=== PATIENT | female | born 1990 | race Caucasian/White ===

== ENCOUNTER 2017-08-19 12:08 | Emergency (ER) | payer BC ==
[2017-08-19 12:59] LABS: #Basophils 0.1 thou/uL (0.0-0.2); #Eosinphils 0.2 thou/uL (0.0-0.7); #Lymphocytes 2.2 thou/uL (1.20-3.40); #Monocytes 0.6 thou/uL (0.11-0.59); %Basophils 0.8 % (0.0-1.0); %Eosinophils 1.2 % (0.0-10.0); %Lymphocytes 16.9 % (21.0-51.0); %Monocytes 4.3 % (0.0-10.0); %Neutrophils 76.8 % (42.0-75.0); Hemoglobin 13.8 g/dL (12.0-16.0); Mean Corpuscular HGB CONC 34.3 g/dL (32.0-36.0); Mean Corpuscular Hemoglobin 30.9 pg (27.0-31.0); Mean Platelet Volume 7.3 fL (7.4-10.4); Platelet Count 270 thou/uL (130-400); Red Blood Cell (RBC) Count 4.48 mill/uL (4.20-5.40)
[2017-08-19 13:15] LABS: CKMB 0.9 ng/mL (0-6.6); Troponin I Less than 0.010 ng/mL (< 0.028)
[2017-08-19] MEDS ORDERED: Acetaminophen 500 MG TAB ONE (13:34)
--- NOTE | 2017-09-17 17:21 | EKG ---
Test Reason : Blood Pressure : / mmHG Vent. Rate : 106 BPM Atrial Rate : 106 BPM P-R Int : 148 ms QRS Dur : 072 ms QT Int : 330 ms P-R-T Axes : 033 -11 031 degrees QTc Int : 438 ms Sinus tachycardia Left axis deviation Otherwise normal ECG Reconfirmed by ABISAI LONGO, REI ([id number]), school photograph editor JOSE ALBERTO MCKEON ([id number]) on 09/17/2017 5:20:59 PM Referred By: Confirmed By:REI BARONE MD
== END 2017-08-19 13:39 | disposition home or self-care (01) ==
LOC: SCSER 12:08
DX: R00.2 Palpitations (principal); I10 Essential (primary) hypertension
CPT/HCPCS: 36415; 82553; 84443; 84484; 85025; 93005

== ENCOUNTER 2022-02-24 13:52 | Inpatient (IN) | payer OTHER, BC ==
[~2022-02-24 13:52] MED LIST: ISOVUE-370 76%-LOCM 1 ML ONE
[2022-02-24] MEDS ORDERED: Rocuronium Bromide 10 MG/ML (10ML VIAL) ONE (14:15)
[2022-02-24] MEDS ORDERED: EPINEPHrine 1 MG/10 ML Abboject SYRINGE ONE (14:15)
[2022-02-24] MEDS ORDERED: Calcium Chloride 1 GM/10 ML Abboject SYRINGE ONE (14:15)
[2022-02-24] MEDS ORDERED: Ketamine 50 MG/ML (10ML VIAL) ONE (14:28)
[2022-02-24 14:35] LABS: BHCG - Serum Negative (NEGATIVE); Pregs Control Background? CLEAR/WHITE (CLR/WHITE); Pregs Control Bar Appear? YES (CONTROL BAR)
[2022-02-24 14:36] LABS: INR-International Normal Ratio 1.1; Prothrombin Time 14.4 sec (12.0-14.7)
[2022-02-24 14:37] LABS: PTT 34.6 sec (22.9-36.1)
[2022-02-24] MEDS ORDERED: Midazolam HCl 2 mg/2 ml Vial ONE (14:38)
[2022-02-24 14:39] LABS: ALT (SGPT) 1601 U/L (8-55); AST (SGOT) 2252 U/L (5-34); Albumin 3.7 g/dL (3.5-5.0); Alkaline Phosphatase 153 U/L (40-110); Anion Gap 19 mmol/L (10-20); BUN (Urea Nitrogen) 12 mg/dL (7.0-18.7); Bilirubin, Total 0.7 mg/dL (0.2-1.2); Calc. Creatinine Clearance 0 mL/min (70-130); Calcium 9.1 mg/dL (7.8-10.44); Carbon Dioxide 18 mmol/L (22-29); Chloride 103 mmol/L (98-107); Estimated GFR 47; Glucose 267 mg/dL (70-105); Potassium 5.4 mmol/L (3.5-5.1); Protein, Total 7.7 g/dL (6.0-8.3); Sodium 135 mmol/L (136-145)
[2022-02-24 14:41] LABS: Hemoglobin 13.5 g/dL (12.0-16.0); Mean Corpuscular HGB CONC 33.9 g/dL (32.0-36.0); Mean Corpuscular Hemoglobin 32.2 pg (27.0-31.0); Mean Corpuscular Volume 94.9 fL (78.0-98.0); Mean Platelet Volume 7.5 fL (7.4-10.4); Platelet Count 421 thou/uL (130-400); Red Blood Cell (RBC) Count 4.19 mill/uL (4.20-5.40); White Blood Cell (WBC) Count 40.7 thou/uL (4.8-10.8)
[2022-02-24] MEDS ORDERED: Tranexamic Acid 1,000 MG/10 ML VIAL ONE ×2 (14:41→14:45)
[2022-02-24 14:43] LABS: Band 24 % (5-11); Eosinophils 1 % (0-10); Lymphocytes 13 % (21-51); MDiff Complete? YES; Monocytes 2 % (0-10); Myelocyte 1 % (0-0); Neutrophil 55 % (42-75); Platelet Morphology Comment Appears Increased; Polychromasia SLIGHT = 2-3 cells (100X) (0-2/hpf); Reactive Lymphocytes 4 % (0-10); Reflex for Review?? YES; Stomatocytes SLIGHT = 2-5 cells (100X) (0-1/hpf)
[2022-02-24] MEDS ORDERED: Fentanyl 100 MCG/2 ML VIAL ONE (14:44)
[2022-02-24] MEDS ORDERED: fentaNYL Citrate/PF 2,000 MCG in Sodium Chloride 0.9% 60 ML IV SCH (14:45)
[2022-02-24] MEDS ORDERED: Boostrix 0.5 ML (Tdap) VIAL ONE (14:52)
[2022-02-24 15:05] LABS: Bacteria/HPF 4+ HPF (None Seen); Bilirubin Negative (Negative); Blood, Urine 3+ (Negative); Clarity Turbid (Clear); Glucose, Urine (Dipstick) Normal (Negative); Ketone, Urine Negative (Negative); Leukocyte 25 Leu/uL (Negative); Nitrite Negative (Negative); Protein, Urine (Dipstick) 30 mg/dL (Neg-Trace); RBC/HPF Greater than 50 HPF (0-3); Specific Gravity, Urine 1.014 (1.002-1.036); Urobilinogen Normal mg/dL (Less than 2); pH, Urine 6.5 (5.0-9.0)
[2022-02-24] MEDS ORDERED: Fentanyl CADD 100 ML ONE (15:21)
[2022-02-24] MEDS ORDERED: Insulin Regular 300 UNITS/3 ML VIAL SC PRN (15:34)
[2022-02-24] MEDS ORDERED: Ondansetron PF 4 MG/2 ML Vial IVP PRN (15:34)
[2022-02-24] MEDS ORDERED: Dextrose 5% in Water 1,000 ML IV PRN (15:34)
[2022-02-24] MEDS ORDERED: Promethazine HCl 25 MG/ML VIAL IM PRN (15:34)
[2022-02-24] MEDS ORDERED: Dextrose 50% Abboject 50 ML SYRINGE SLOW IVP PRN (15:34)
[2022-02-24] MEDS ORDERED: hydrALAZINE 20 MG/ML VIAL SLOW IVP PRN (15:34)
[2022-02-24 15:39] LABS: Acetaminophen Less than 10.0 mcg/mL (10.0-30.0); Alcohol Less than 10 mg/dL (Less than 10); Salicylate Less than 8.0 mg/dL (15.0-30.0)
[2022-02-24] MEDS ORDERED: Sodium Chloride 0.9% 1,000 ML IV SCH (15:45)
[2022-02-24 15:48] LABS: Actual Bicarbonate (HCO3a) 16.8 mEq/L (22-28); Base Excess (BEa) -10.5 mEq/L (-2.0 to +3.0); CO2 Tension 42.1 mmHg (35.0-45.0); Hemoglobin (Hb) 13.9 g/dL (12.0-16.0); O2 Tension (PaO2), arterial 99.1 mmHg (80.0-100.0)
[2022-02-24 15:49] LABS: ALV-art Gradient 561.275 mmHg (0-20); Analyzer IN Cardio ER; Calcium, Ionized (arterial) 1.21 mmol/L (1.12-1.30); Carboxyhemoglobin (COHb) 0.3 gm% (0.0-3.0); Potassium - ABG Lab 3.99 mmol/L (3.70-5.30); Puncture Site RRA; pH, Arterial 7.22 (7.35-7.45)
[2022-02-24 16:06] LABS: CKMB 14.5 ng/mL (0-6.6)
[2022-02-24] MEDS: Fentanyl CADD 100 ML IV PRN (16:12)
[2022-02-24 17:18] LABS: Lactic Acid 4.9 mmol/L (0.5-2.2)
[2022-02-24] MEDS: Acetaminophen 500 MG TAB PO SCH ×2 (17:52→23:23)
[2022-02-24 20:38] LABS: #Eosinphils 0.1 thou/uL (0.0-0.7); #Monocytes 0.9 thou/uL (0.11-0.59); #Neutrophils 16.9 thou/uL (1.40-6.50); %Eosinophils 0.4 % (0.0-10.0); %Lymphocytes 5.4 % (21.0-51.0); %Monocytes 4.6 % (0.0-10.0); %Neutrophils 89.6 % (42.0-75.0); Hemoglobin 14.4 g/dL (12.0-16.0); Mean Corpuscular Hemoglobin 30.8 pg (27.0-31.0); Mean Corpuscular Volume 90.6 fL (78.0-98.0); Mean Platelet Volume 7.6 fL (7.4-10.4); Platelet Count 141 thou/uL (130-400); RBC Distribution Width 12.7 % (11.5-14.5); Red Blood Cell (RBC) Count 4.67 mill/uL (4.20-5.40); White Blood Cell (WBC) Count 18.9 thou/uL (4.8-10.8)
[2022-02-24] MEDS: Potassium Chloride 20 MEQ in Lactated Ringer's 1,000 ML IV SCH (20:52)
[2022-02-24 20:55] LABS: SARS-CoV-2 NAA Rapid Test Not Detected (NotDetected)
[2022-02-24 20:57] LABS: Lactic Acid 5.5 mmol/L (0.5-2.2)
[2022-02-24] MEDS ORDERED: Lactated Ringer's 1,000 ML IV SCH (21:15)
[2022-02-24 21:23] LABS: CK (CPK) 8295 U/L (29-168)
[2022-02-24 21:24] LABS: Anion Gap 14 mmol/L (10-20); BUN (Urea Nitrogen) 16 mg/dL (7.0-18.7); Calc. Creatinine Clearance 82 mL/min (70-130); Calcium 10.5 mg/dL (7.8-10.44); Carbon Dioxide 20 mmol/L (22-29); Chloride 110 mmol/L (98-107); Estimated GFR 56; Glucose 158 mg/dL (70-105); Magnesium 1.8 mg/dL (1.6-2.6); Potassium 3.9 mmol/L (3.5-5.1); Sodium 140 mmol/L (136-145)
[2022-02-25] MEDS: Potassium Chloride 20 MEQ in Lactated Ringer's 1,000 ML IV SCH (04:18)
[2022-02-25] MEDS: Acetaminophen 500 MG TAB PO SCH ×4 (05:19→22:39)
[2022-02-25] MEDS: Fentanyl CADD 100 ML IV PRN ×2 (05:19→21:10)
[2022-02-25 05:23] LABS: Lactic Acid 3.2 mmol/L (0.5-2.2)
[2022-02-25 05:28] LABS: Phosphorus 4.9 mg/dL (2.3-4.7)
[2022-02-25 05:34] LABS: Anion Gap 16 mmol/L (10-20); BUN (Urea Nitrogen) 16 mg/dL (7.0-18.7); Calc. Creatinine Clearance 112 mL/min (70-130); Calcium 9.6 mg/dL (7.8-10.44); Carbon Dioxide 17 mmol/L (22-29); Chloride 111 mmol/L (98-107); Estimated GFR 82; Glucose 140 mg/dL (70-105); Magnesium 1.5 mg/dL (1.6-2.6); Potassium 4.4 mmol/L (3.5-5.1); Sodium 140 mmol/L (136-145)
[2022-02-25 06:01] LABS: CK (CPK) 11303 U/L (29-168)
[2022-02-25 06:17] LABS: ALT (SGPT) 1228 U/L (8-55); AST (SGOT) 1936 U/L (5-34); Albumin 3.1 g/dL (3.5-5.0); Alkaline Phosphatase 63 U/L (40-110); Bilirubin, Direct 1.7 mg/dL (0.1-0.3); Bilirubin, Total 3.5 mg/dL (0.2-1.2); Protein, Total 5.9 g/dL (6.0-8.3)
[2022-02-25] MEDS ORDERED: ceFAZolin 2 GM/Dextrose 50 ML 2 GM in Premix Bag 1 BAG IVPB SCH (07:15)
[2022-02-25] MEDS ORDERED: Magnesium 2 GM/50 ML(in water) 4 GM in Premix Bag 1 BAG IVPB SCH (07:30)
[2022-02-25] MEDS ORDERED: Sodium Chloride 0.9% (PF) 10 ML VIAL FS PRN (08:45)
[2022-02-25 08:47] LABS: Band 35 % (5-11); Eosinophils 2 % (0-10); Hemoglobin 13.2 g/dL (12.0-16.0); Lymphocytes 13 % (21-51); MDiff Complete? YES; Mean Corpuscular HGB CONC 35.1 g/dL (32.0-36.0); Mean Corpuscular Hemoglobin 31.8 pg (27.0-31.0); Mean Corpuscular Volume 90.4 fL (78.0-98.0); Mean Platelet Volume 8.1 fL (7.4-10.4); Metamyelocyte 1 % (0-0); Monocytes 6 % (0-10); Myelocyte 1 % (0-0); Neutrophil 42 % (42-75); Platelet Count 110 thou/uL (130-400); Platelet Morphology Comment Appears Decreased; Polychromasia SLIGHT = 2-3 cells (100X) (0-2/hpf); RBC Distribution Width 13.4 % (11.5-14.5); Red Blood Cell (RBC) Count 4.16 mill/uL (4.20-5.40); White Blood Cell (WBC) Count 12.4 thou/uL (4.8-10.8)
[2022-02-25] MEDS ORDERED: Lactated Ringer's 1,000 ML IV SCH (09:00)
[2022-02-25] MEDS ORDERED: Potassium Chloride 20 MEQ in Lactated Ringer's 1,000 ML IV SCH (09:41)
[2022-02-25] MEDS: Pantoprazole 40 MG VIAL IVP SCH (11:06)
[2022-02-25] MEDS: Sodium Chloride 0.9% 1,000 ML IV SCH ×3 (14:45→22:39)
[2022-02-25] MEDS ORDERED: Midazolam HCl 5 mg/5 ml Vial ONE (15:43)
[2022-02-25] MEDS ORDERED: CEFAZOLIN 2 GM in Sodium Chloride 0.9% 100 ML IVPB SCH ×2 (16:00→22:00)
[2022-02-25] MEDS ORDERED: Vecuronium 10 MG VIAL ONE (16:06)
[2022-02-25] MEDS ORDERED: Rocuronium Bromide 10 MG/ML (10ML VIAL) ONE (16:06)
[2022-02-25] MEDS ORDERED: Phenylephrine 10 MG/ML VIAL ONE ×2 (16:06→16:26)
[2022-02-25] MEDS ORDERED: Albumin 5% 500 ML ONE (16:29)
[2022-02-25 17:01] LABS: INR-International Normal Ratio 1.4; Prothrombin Time 17.5 sec (12.0-14.7)
[2022-02-25 17:02] LABS: PTT 32.3 sec (22.9-36.1)
[2022-02-25] MEDS ORDERED: Sodium Chloride 0.9% 1,000 ML IV SCH (23:45)
[2022-02-26 00:15] LABS: #Eosinphils 0.1 thou/uL (0.0-0.7); #Lymphocytes 1.5 thou/uL (1.20-3.40); #Monocytes 0.7 thou/uL (0.11-0.59); #Neutrophils 8.6 thou/uL (1.40-6.50); %Basophils 0.3 % (0.0-1.0); %Eosinophils 0.5 % (0.0-10.0); %Lymphocytes 13.7 % (21.0-51.0); %Monocytes 6.5 % (0.0-10.0); %Neutrophils 78.9 % (42.0-75.0); Hemoglobin 9.5 g/dL (12.0-16.0); INR-International Normal Ratio 1.5; Mean Corpuscular HGB CONC 33.8 g/dL (32.0-36.0); Mean Corpuscular Hemoglobin 31.6 pg (27.0-31.0); Mean Corpuscular Volume 93.6 fL (78.0-98.0); Mean Platelet Volume 8.3 fL (7.4-10.4); Platelet Count 79 thou/uL (130-400); Prothrombin Time 18.6 sec (12.0-14.7); RBC Distribution Width 13.2 % (11.5-14.5); Red Blood Cell (RBC) Count 2.99 mill/uL (4.20-5.40); White Blood Cell (WBC) Count 10.8 thou/uL (4.8-10.8)
[2022-02-26] MEDS: Sodium Chloride 0.9% 1,000 ML IV SCH ×2 (00:29→02:59)
[2022-02-26 00:31] LABS: Anion Gap 13 mmol/L (10-20); BUN (Urea Nitrogen) 12 mg/dL (7.0-18.7); Calc. Creatinine Clearance 123 mL/min (70-130); Calcium 7.3 mg/dL (7.8-10.44); Carbon Dioxide 18 mmol/L (22-29); Chloride 114 mmol/L (98-107); Estimated GFR 88; Glucose 177 mg/dL (70-105); Magnesium 1.5 mg/dL (1.6-2.6); Phosphorus 3.1 mg/dL (2.3-4.7); Potassium 4.9 mmol/L (3.5-5.1); Sodium 140 mmol/L (136-145)
[2022-02-26] MEDS ORDERED: Calcium Chloride 1 GM/10 ML Abboject SYRINGE IVP SCH (02:15)
[2022-02-26] MEDS ORDERED: Sodium Chloride 0.9% 1,000 ML IV SCH (02:15)
[2022-02-26] MEDS ORDERED: Hydrocortisone Sod Succ/PF 100 mg/2 ml Vial IVP SCH (02:15)
[2022-02-26] MEDS ORDERED: Magnesium Sulfate 3 GM in Sodium Chloride 0.9% 100 ML IVPB SCH ×2 (02:30→22:15)
[2022-02-26] MEDS: CEFAZOLIN 2 GM in Sodium Chloride 0.9% 100 ML IVPB SCH ×2 (02:38→10:31)
[2022-02-26 04:07] LABS: #Eosinphils 0.1 thou/uL (0.0-0.7); #Lymphocytes 1.1 thou/uL (1.20-3.40); #Monocytes 0.5 thou/uL (0.11-0.59); %Basophils 0.3 % (0.0-1.0); %Eosinophils 0.9 % (0.0-10.0); %Monocytes 5.2 % (0.0-10.0); %Neutrophils 80.7 % (42.0-75.0); Hemoglobin 7.9 g/dL (12.0-16.0); Mean Corpuscular HGB CONC 34.6 g/dL (32.0-36.0); Mean Corpuscular Hemoglobin 32.2 pg (27.0-31.0); Mean Corpuscular Volume 93.1 fL (78.0-98.0); Mean Platelet Volume 7.9 fL (7.4-10.4); Platelet Count 75 thou/uL (130-400); RBC Distribution Width 13.2 % (11.5-14.5); Red Blood Cell (RBC) Count 2.44 mill/uL (4.20-5.40); White Blood Cell (WBC) Count 8.7 thou/uL (4.8-10.8)
[2022-02-26 04:20] LABS: Lactic Acid 1.9 mmol/L (0.5-2.2)
[2022-02-26 04:34] LABS: ALT (SGPT) 955 U/L (8-55); AST (SGOT) 1301 U/L (5-34); Albumin 2.6 g/dL (3.5-5.0); Alkaline Phosphatase 59 U/L (40-110); Bilirubin, Direct 1.1 mg/dL (0.1-0.3); Bilirubin, Total 1.9 mg/dL (0.2-1.2); Protein, Total 4.2 g/dL (6.0-8.3)
[2022-02-26 04:35] LABS: Anion Gap 11 mmol/L (10-20); BUN (Urea Nitrogen) 10 mg/dL (7.0-18.7); Calc. Creatinine Clearance 135 mL/min (70-130); Calcium 8.9 mg/dL (7.8-10.44); Carbon Dioxide 18 mmol/L (22-29); Chloride 115 mmol/L (98-107); Estimated GFR 98; Glucose 148 mg/dL (70-105); Magnesium 1.7 mg/dL (1.6-2.6); Phosphorus 2.6 mg/dL (2.3-4.7); Potassium 4.1 mmol/L (3.5-5.1); Sodium 140 mmol/L (136-145)
[2022-02-26 04:45] LABS: CK (CPK) 7437 U/L (29-168)
[2022-02-26] MEDS: Acetaminophen 500 MG TAB PO SCH ×2 (06:09→15:06)
[2022-02-26] MEDS ORDERED: Magnesium 2 GM/50 ML(in water) 3 GM in Premix Bag 1 BAG IVPB SCH (06:30)
[2022-02-26] MEDS ORDERED: diphenhydrAMINE 50 MG/ML VIAL IVP PRN (07:16)
[2022-02-26] MEDS ORDERED: diphenhydrAMINE 50 MG/ML VIAL IM PRN (07:16)
[2022-02-26] MEDS ORDERED: Zolpidem Tartrate 5 MG TAB PO PRN (07:16)
[2022-02-26] MEDS ORDERED: Promethazine HCl 25 MG/ML VIAL IM PRN (07:16)
[2022-02-26] MEDS ORDERED: Naloxone HCl 0.4 mg/ml Vial IV PRN (07:16)
[2022-02-26] MEDS ORDERED: diphenhydrAMINE 25 MG CAP PO PRN (07:16)
[2022-02-26] MEDS ORDERED: Communication Order-Pharmacy FS SCH (07:30)
[2022-02-26 08:30] LABS: Actual Bicarbonate (HCO3a) 17.1 mEq/L (22-28); Base Excess (BEa) -6.1 mEq/L (-2.0 to +3.0); CO2 Tension 28.4 mmHg (35.0-45.0); Calcium, Ionized (arterial) 1.21 mmol/L (1.12-1.30); O2 Tension (PaO2), arterial 94.4 mmHg (80.0-100.0); Potassium - ABG Lab 4.08 mmol/L (3.70-5.30)
[2022-02-26] MEDS ORDERED: Enoxaparin Sodium 40 MG/0.4 ML SYRINGE SC SCH (09:00)
[2022-02-26] MEDS: Pantoprazole 40 MG VIAL IVP SCH (09:49)
[2022-02-26] MEDS: HYDROmorphone 10 mg/100 ml CADD IVPB PRN (10:30)
[2022-02-26] MEDS: Hydrocortisone Sod Succ/PF 100 mg/2 ml Vial IVP SCH ×3 (10:32→17:46)
[2022-02-26] MEDS: Ondansetron PF 4 MG/2 ML Vial IVP PRN ×2 (10:50→17:15)
[2022-02-26] MEDS: Lactated Ringer's 1,000 ML IV SCH ×2 (10:55→17:07)
[2022-02-26] MEDS ORDERED: ceFAZolin 2 GM/Dextrose 50 ML 2 GM in Premix Bag 1 BAG IVPB SCH (13:45)
[2022-02-26] MEDS ORDERED: CEFAZOLIN 2 GM VIAL IVPB SCH (14:00)
[2022-02-26 14:51] LABS: Actual Bicarbonate (HCO3v) 21 mEq/L (22-28); Analyzer IN Cardio OR; Base Excess -5.7 mEq/L (-2.0 to +3.0); Calcium, Ionized (venous) 1.09 mmol/L (1.16-1.32); Chloride (VBG) 114 mmol/L (98-106); Hemoglobin (Hb) 11.2 g/dL (11.7-15.5); Potassium (VBG) 4.78 mmol/L (3.70-5.30); Sodium 137.8 mmol/L (133-146); pH (venous) 7.28 (7.32-7.43)
[2022-02-26 14:51] LABS: Actual Bicarbonate (HCO3v) 22 mEq/L (22-28); Analyzer IN Cardio OR; Base Excess -4.5 mEq/L (-2.0 to +3.0); Calcium, Ionized (venous) 1.14 mmol/L (1.16-1.32); Chloride (VBG) 113 mmol/L (98-106); Hemoglobin (Hb) 10.2 g/dL (11.7-15.5); Potassium (VBG) 4.33 mmol/L (3.70-5.30); Sodium 138.1 mmol/L (133-146); pH (venous) 7.31 (7.32-7.43)
[2022-02-26 14:52] LABS: Actual Bicarbonate (HCO3v) 23 mEq/L (22-28); Analyzer IN Cardio OR; Base Excess -3.9 mEq/L (-2.0 to +3.0); Calcium, Ionized (venous) 1.21 mmol/L (1.16-1.32); Chloride (VBG) 112 mmol/L (98-106); Hemoglobin (Hb) 12.1 g/dL (11.7-15.5); Potassium (VBG) 4.29 mmol/L (3.70-5.30); Sodium 139.4 mmol/L (133-146)
[2022-02-26] MEDS ORDERED: Lactated Ringer's 1,000 ML IV SCH ×2 (17:31→21:45)
[2022-02-26] MEDS ORDERED: Cyclobenzaprine 10 MG TAB PO SCH (19:30)
[2022-02-26] MEDS ORDERED: Bisoprolol Fumarate/HCTZ 5 mg/6.25 mg Tablet PO SCH (20:30)
[2022-02-26] MEDS ORDERED: Cyclobenzaprine 10 MG TAB PO PRN (20:40)
[2022-02-26 20:54] LABS: #Eosinphils 0.1 thou/uL (0.0-0.7); #Lymphocytes 1.6 thou/uL (1.20-3.40); #Monocytes 0.7 thou/uL (0.11-0.59); #Neutrophils 10.2 thou/uL (1.40-6.50); %Basophils 0.2 % (0.0-1.0); %Eosinophils 0.8 % (0.0-10.0); %Lymphocytes 12.3 % (21.0-51.0); %Monocytes 5.7 % (0.0-10.0); Hemoglobin 9.6 g/dL (12.0-16.0); Mean Corpuscular HGB CONC 35.1 g/dL (32.0-36.0); Mean Corpuscular Hemoglobin 32.1 pg (27.0-31.0); Mean Corpuscular Volume 91.5 fL (78.0-98.0); Platelet Count 85 thou/uL (130-400); Red Blood Cell (RBC) Count 2.98 mill/uL (4.20-5.40); White Blood Cell (WBC) Count 12.6 thou/uL (4.8-10.8)
[2022-02-26] MEDS: Gabapentin 300 MG CAP PO SCH (21:22)
[2022-02-26] MEDS: Senokot S 8.6-50 MG TAB PO SCH (21:22)
[2022-02-26] MEDS: Oxazepam 10 MG CAP PO SCH (21:22)
[2022-02-26 21:40] LABS: Anion Gap 10 mmol/L (10-20); BUN (Urea Nitrogen) 6 mg/dL (7.0-18.7); Calc. Creatinine Clearance 171 mL/min (70-130); Calcium 8.3 mg/dL (7.8-10.44); Carbon Dioxide 21 mmol/L (22-29); Chloride 109 mmol/L (98-107); Estimated GFR 117; Glucose 144 mg/dL (70-105); Magnesium 1.8 mg/dL (1.6-2.6); Phosphorus 1.9 mg/dL (2.3-4.7); Potassium 3.5 mmol/L (3.5-5.1); Sodium 136 mmol/L (136-145)
[2022-02-26] MEDS ORDERED: Potassium Phosphate 30 MMOL in Sodium Chloride 0.9% 250 ML 250 ML IVPB SCH (22:15)
[2022-02-27] MEDS ORDERED: Melatonin 3 MG TAB PO PRN (00:12)
[2022-02-27] MEDS ORDERED: Furosemide 20 MG/2 ML VIAL SLOW IVP SCH ×2 (00:15→03:45)
[2022-02-27] MEDS: Oxazepam 10 MG CAP PO SCH ×4 (00:17→21:42)
[2022-02-27] MEDS: Hydrocortisone Sod Succ/PF 100 mg/2 ml Vial IVP SCH ×4 (02:52→18:09)
[2022-02-27] MEDS ORDERED: Ibuprofen 200 MG TAB PO SCH (03:45)
[2022-02-27 04:43] LABS: #Eosinphils 0.3 thou/uL (0.0-0.7); #Monocytes 0.8 thou/uL (0.11-0.59); #Neutrophils 11.6 thou/uL (1.40-6.50); %Basophils 0.2 % (0.0-1.0); %Eosinophils 1.8 % (0.0-10.0); %Lymphocytes 13.5 % (21.0-51.0); %Monocytes 5.7 % (0.0-10.0); %Neutrophils 78.8 % (42.0-75.0); Hemoglobin 9.4 g/dL (12.0-16.0); Mean Corpuscular HGB CONC 34.7 g/dL (32.0-36.0); Mean Corpuscular Volume 92.3 fL (78.0-98.0); Mean Platelet Volume 8.2 fL (7.4-10.4); Platelet Count 110 thou/uL (130-400); RBC Distribution Width 13.2 % (11.5-14.5); Red Blood Cell (RBC) Count 2.94 mill/uL (4.20-5.40); White Blood Cell (WBC) Count 14.8 thou/uL (4.8-10.8)
[2022-02-27 05:15] LABS: ALT (SGPT) 618 U/L (8-55); AST (SGOT) 581 U/L (5-34); Albumin 2.6 g/dL (3.5-5.0); Alkaline Phosphatase 92 U/L (40-110); Bilirubin, Direct 0.9 mg/dL (0.1-0.3); Bilirubin, Total 1.8 mg/dL (0.2-1.2)
[2022-02-27 05:21] LABS: Anion Gap 13 mmol/L (10-20); BUN (Urea Nitrogen) 7 mg/dL (7.0-18.7); Calc. Creatinine Clearance 162 mL/min (70-130); Calcium 8.3 mg/dL (7.8-10.44); Carbon Dioxide 22 mmol/L (22-29); Chloride 108 mmol/L (98-107); Estimated GFR 109; Glucose 154 mg/dL (70-105); Magnesium 1.7 mg/dL (1.6-2.6); Phosphorus 2.9 mg/dL (2.3-4.7); Potassium 3.6 mmol/L (3.5-5.1); Sodium 139 mmol/L (136-145)
[2022-02-27 05:51] LABS: CK (CPK) 8116 U/L (29-168)
[2022-02-27] MEDS ORDERED: Acetaminophen 650 MG Suppository PR PRN (05:56)
[2022-02-27] MEDS ORDERED: fentaNYL Citrate/PF 2,000 MCG in Sodium Chloride 0.9% 60 ML IV PRN (05:58)
[2022-02-27] MEDS ORDERED: Midazolam HCl 2 mg/2 ml Vial SLOW IVP SCH ×2 (06:00→07:30)
[2022-02-27] MEDS ORDERED: Piperacillin/Tazobactam 3.375 GM in Sodium Chloride 0.9% 100 ML IVPB SCH (06:00)
[2022-02-27] MEDS ORDERED: Lactated Ringer's 1,000 ML IV SCH (06:00)
[2022-02-27] MEDS ORDERED: Vecuronium 10 MG VIAL IVP SCH (06:00)
[2022-02-27] MEDS ORDERED: Acetaminophen 500 MG TAB PO SCH ×2 (06:00→06:53)
[2022-02-27] MEDS ORDERED: Fentanyl CADD 100 ML IV SCH (06:15)
[2022-02-27] MEDS ORDERED: Midazolam HCl 2 mg/2 ml Vial ONE ×2 (07:05→07:25)
[2022-02-27] MEDS ORDERED: fentaNYL Citrate/PF 100 MCG/2 ML SYRINGE ONE (07:24)
[2022-02-27] MEDS ORDERED: Lidocaine 2% 6 ML SYR ONE (07:25)
[2022-02-27] MEDS ORDERED: Bisoprolol Fumarate/HCTZ 5 mg/6.25 mg Tablet PO SCH ×2 (09:00→20:27)
[2022-02-27] MEDS: Gabapentin 300 MG CAP PO SCH ×3 (09:09→21:11)
[2022-02-27] MEDS: Cyclobenzaprine 10 MG TAB PO SCH ×3 (09:10→21:10)
[2022-02-27] MEDS: Pantoprazole 40 MG VIAL IVP SCH (09:11)
[2022-02-27] MEDS: Enoxaparin Sodium 40 MG/0.4 ML SYRINGE SC SCH (09:11)
[2022-02-27] MEDS: Polyethylene Glycol 3350 17 GM Packet PO SCH (09:16)
[2022-02-27] MEDS: Senokot S 8.6-50 MG TAB PO SCH ×2 (09:16→21:18)
[2022-02-27] MEDS: Piperacillin/Tazobactam 3.375 GM in Sodium Chloride 0.9% 100 ML IVPB SCH ×2 (10:18→18:10)
[2022-02-27] MEDS: Acetaminophen 325 MG TAB PO SCH ×3 (12:22→23:21)
[2022-02-27] MEDS ORDERED: Triple Antibiotic Oint 1 GM Packet TOP PRN (17:00)
[2022-02-27] MEDS: Midazolam HCl 2 mg/2 ml Vial SLOW IVP PRN (23:21)
[2022-02-28] MEDS: Midazolam HCl 2 mg/2 ml Vial SLOW IVP PRN (02:41)
[2022-02-28] MEDS: Hydrocortisone Sod Succ/PF 100 mg/2 ml Vial IVP SCH ×3 (02:42→20:11)
[2022-02-28] MEDS: Piperacillin/Tazobactam 3.375 GM in Sodium Chloride 0.9% 100 ML IVPB SCH ×3 (02:42→17:15)
[2022-02-28 04:13] LABS: #Eosinphils 0.1 thou/uL (0.0-0.7); #Lymphocytes 1.3 thou/uL (1.20-3.40); #Monocytes 0.7 thou/uL (0.11-0.59); #Neutrophils 9.3 thou/uL (1.40-6.50); %Basophils 0.2 % (0.0-1.0); %Eosinophils 0.9 % (0.0-10.0); %Lymphocytes 11.2 % (21.0-51.0); %Monocytes 6.3 % (0.0-10.0); %Neutrophils 81.4 % (42.0-75.0); Hemoglobin 8.7 g/dL (12.0-16.0); Mean Corpuscular HGB CONC 34.1 g/dL (32.0-36.0); Mean Corpuscular Hemoglobin 31.9 pg (27.0-31.0); Mean Corpuscular Volume 93.5 fL (78.0-98.0); Platelet Count 93 thou/uL (130-400); RBC Distribution Width 13.2 % (11.5-14.5); Red Blood Cell (RBC) Count 2.74 mill/uL (4.20-5.40); White Blood Cell (WBC) Count 11.4 thou/uL (4.8-10.8)
[2022-02-28 04:34] LABS: Anion Gap 9 mmol/L (10-20); BUN (Urea Nitrogen) 8 mg/dL (7.0-18.7); Calc. Creatinine Clearance 183 mL/min (70-130); Calcium 8.1 mg/dL (7.8-10.44); Carbon Dioxide 27 mmol/L (22-29); Chloride 108 mmol/L (98-107); Estimated GFR 118; Glucose 186 mg/dL (70-105); Potassium 3.2 mmol/L (3.5-5.1); Sodium 141 mmol/L (136-145)
[2022-02-28] MEDS: Acetaminophen 325 MG TAB PO SCH ×4 (05:31→23:08)
[2022-02-28] MEDS: Oxazepam 10 MG CAP PO SCH ×3 (05:31→20:13)
[2022-02-28] MEDS: Ferrous Sulfate 325 MG TAB PO SCH ×2 (09:02→17:14)
[2022-02-28] MEDS: Cyclobenzaprine 10 MG TAB PO SCH ×3 (09:03→20:10)
[2022-02-28] MEDS: Pantoprazole 40 MG VIAL IVP SCH (09:03)
[2022-02-28] MEDS: Ascorbic Acid 500 mg Chewable Tablet PO SCH ×2 (09:03→20:10)
[2022-02-28] MEDS: Senokot S 8.6-50 MG TAB PO SCH ×2 (09:03→20:13)
[2022-02-28] MEDS: Enoxaparin Sodium 40 MG/0.4 ML SYRINGE SC SCH (09:03)
[2022-02-28] MEDS: Gabapentin 300 MG CAP PO SCH ×3 (09:03→20:10)
[2022-02-28] MEDS: Polyethylene Glycol 3350 17 GM Packet PO SCH (09:03)
[2022-02-28] MEDS: Saccharomyces boulardii 250 MG CAP PO SCH (09:03)
[2022-02-28] MEDS: HYDROmorphone 10 mg/100 ml CADD IVPB PRN (09:13)
[2022-02-28] MEDS ORDERED: Potassium Chloride 20 MEQ TAB PO SCH (09:30)
[2022-02-28 10:04] LABS: Magnesium 1.9 mg/dL (1.6-2.6)
[2022-02-28] MEDS: Bisoprolol Fumarate 5 MG TAB PO SCH (10:24)
[2022-02-28] MEDS ORDERED: CEFAZOLIN 2 GM in Sodium Chloride 0.9% 100 ML IVPB SCH (11:30)
[2022-02-28] MEDS ORDERED: cloNIDine 0.2 MG TAB PO SCH (12:00)
[2022-02-28] MEDS: cloNIDine 0.1 MG TAB PO SCH ×3 (12:18→23:09)
[2022-02-28] MEDS ORDERED: Pseudoephedrine HCl 30 MG TAB PO SCH (17:30)
[2022-03-01] MEDS: Piperacillin/Tazobactam 3.375 GM in Sodium Chloride 0.9% 100 ML IVPB SCH ×3 (02:18→18:13)
[2022-03-01 06:10] LABS: #Eosinphils 0.2 thou/uL (0.0-0.7); #Lymphocytes 1.9 thou/uL (1.20-3.40); #Monocytes 0.8 thou/uL (0.11-0.59); #Neutrophils 9.9 thou/uL (1.40-6.50); %Basophils 0.2 % (0.0-1.0); %Eosinophils 1.3 % (0.0-10.0); %Lymphocytes 14.8 % (21.0-51.0); %Monocytes 6.2 % (0.0-10.0); %Neutrophils 77.5 % (42.0-75.0); Hemoglobin 8.4 g/dL (12.0-16.0); Mean Corpuscular HGB CONC 33.3 g/dL (32.0-36.0); Mean Corpuscular Hemoglobin 31.7 pg (27.0-31.0); Mean Platelet Volume 8.1 fL (7.4-10.4); Platelet Count 126 thou/uL (130-400); RBC Distribution Width 13.5 % (11.5-14.5); Red Blood Cell (RBC) Count 2.66 mill/uL (4.20-5.40); White Blood Cell (WBC) Count 12.7 thou/uL (4.8-10.8)
[2022-03-01 06:33] LABS: Anion Gap 11 mmol/L (10-20); BUN (Urea Nitrogen) 11 mg/dL (7.0-18.7); Calc. Creatinine Clearance 208 mL/min (70-130); Calcium 8.1 mg/dL (7.8-10.44); Carbon Dioxide 28 mmol/L (22-29); Chloride 108 mmol/L (98-107); Estimated GFR 122; Glucose 178 mg/dL (70-105); Potassium 3.4 mmol/L (3.5-5.1); Sodium 144 mmol/L (136-145)
[2022-03-01] MEDS: Acetaminophen 325 MG TAB PO SCH ×3 (06:40→18:12)
[2022-03-01] MEDS: Oxazepam 10 MG CAP PO SCH ×3 (06:41→21:38)
[2022-03-01] MEDS: cloNIDine 0.1 MG TAB PO SCH ×3 (06:41→18:12)
[2022-03-01 07:30] LABS: Phosphorus 2.2 mg/dL (2.3-4.7)
[2022-03-01] MEDS: Gabapentin 300 MG CAP PO SCH ×3 (08:29→21:37)
[2022-03-01] MEDS: Ferrous Sulfate 325 MG TAB PO SCH ×2 (08:29→18:13)
[2022-03-01] MEDS: Cyclobenzaprine 10 MG TAB PO SCH ×3 (08:30→21:38)
[2022-03-01] MEDS: Ascorbic Acid 500 mg Chewable Tablet PO SCH ×2 (08:30→21:37)
[2022-03-01] MEDS: Saccharomyces boulardii 250 MG CAP PO SCH (08:30)
[2022-03-01] MEDS: Pantoprazole 40 MG VIAL IVP SCH (08:32)
[2022-03-01] MEDS: Enoxaparin Sodium 40 MG/0.4 ML SYRINGE SC SCH (08:33)
[2022-03-01] MEDS: Polyethylene Glycol 3350 17 GM Packet PO SCH (08:33)
[2022-03-01] MEDS: Hydrocortisone Sod Succ/PF 100 mg/2 ml Vial IVP SCH ×2 (08:33→21:39)
[2022-03-01] MEDS: Senokot S 8.6-50 MG TAB PO SCH ×2 (08:34→21:40)
[2022-03-01] MEDS: Bisoprolol Fumarate 5 MG TAB PO SCH (10:14)
[2022-03-01] MEDS ORDERED: Midazolam HCl 2 mg/2 ml Vial ONE ×2 (14:16→16:27)
[2022-03-01] MEDS ORDERED: fentaNYL Citrate/PF 100 MCG/2 ML SYRINGE ONE ×2 (14:31→15:57)
[2022-03-01] MEDS ORDERED: SUGAMMADEX SODIUM 200 MG/2 ML VIAL ONE (14:36)
[2022-03-01] MEDS ORDERED: Lidocaine 2% 6 ML SYR ONE (14:36)
[2022-03-01] MEDS ORDERED: Succinylcholine 200 MG/10 ml SYRINGE FS ONE (14:59)
[2022-03-01] MEDS ORDERED: Phenylephrine 10 MG/ML VIAL ONE (14:59)
[2022-03-01] MEDS ORDERED: Ketorolac Tromethamine 30 MG/ML VIAL ONE (14:59)
[2022-03-01] MEDS ORDERED: Ondansetron PF 4 MG/2 ML Vial ONE (14:59)
[2022-03-01] MEDS ORDERED: PROPOFOL 200 MG/20 ML VIAL ONE (14:59)
[2022-03-01] MEDS ORDERED: EPINEPHrine 1 MG/ML AMP ONE (15:24)
[2022-03-01] MEDS ORDERED: Bupivacaine PF 0.5% 30 ML VIAL ONE (15:24)
[2022-03-01] MEDS ORDERED: Promethazine HCl 25 MG/ML VIAL IVPB PRN (16:49)
[2022-03-01] MEDS ORDERED: Ondansetron HCl/PF 4 MG/2 ML Vial IVP PRN (16:49)
[2022-03-01] MEDS ORDERED: Promethazine HCl 25 MG/ML VIAL IM PRN (16:49)
[2022-03-01] MEDS ORDERED: Fentanyl 100 MCG/2 ML VIAL ONE (17:08)
[2022-03-01] MEDS ORDERED: ceFAZolin 2 GM/Dextrose 50 ML 2 GM in Premix Bag 1 BAG IVPB SCH (19:00)
[2022-03-01] MEDS: HYDROmorphone 10 mg/100 ml CADD IVPB PRN (21:20)
[2022-03-01] MEDS: Enoxaparin Sodium 30 MG/0.3 ML SYRINGE SC SCH (21:38)
[2022-03-01] MEDS: CEFAZOLIN 2 GM in Sodium Chloride 0.9% 100 ML IVPB SCH (21:38)
[2022-03-02] MEDS: cloNIDine 0.1 MG TAB PO SCH ×5 (00:23→23:56)
[2022-03-02] MEDS: Acetaminophen 325 MG TAB PO SCH ×5 (00:23→23:56)
[2022-03-02] MEDS: Piperacillin/Tazobactam 3.375 GM in Sodium Chloride 0.9% 100 ML IVPB SCH ×3 (02:13→16:36)
[2022-03-02] MEDS: CEFAZOLIN 2 GM in Sodium Chloride 0.9% 100 ML IVPB SCH (04:16)
[2022-03-02 04:49] LABS: #Eosinphils 0.3 thou/uL (0.0-0.7); #Lymphocytes 1.6 thou/uL (1.20-3.40); #Monocytes 0.8 thou/uL (0.11-0.59); #Neutrophils 8.6 thou/uL (1.40-6.50); %Basophils 0.1 % (0.0-1.0); %Eosinophils 2.6 % (0.0-10.0); %Lymphocytes 14.4 % (21.0-51.0); %Monocytes 6.7 % (0.0-10.0); %Neutrophils 76.2 % (42.0-75.0); Hemoglobin 8.3 g/dL (12.0-16.0); Mean Corpuscular HGB CONC 32.4 g/dL (32.0-36.0); Mean Corpuscular Volume 95.6 fL (78.0-98.0); Platelet Count 161 thou/uL (130-400); RBC Distribution Width 13.6 % (11.5-14.5); Red Blood Cell (RBC) Count 2.67 mill/uL (4.20-5.40); White Blood Cell (WBC) Count 11.3 thou/uL (4.8-10.8)
[2022-03-02 05:14] LABS: Anion Gap 11 mmol/L (10-20); BUN (Urea Nitrogen) 11 mg/dL (7.0-18.7); Calc. Creatinine Clearance 196 mL/min (70-130); Calcium 7.6 mg/dL (7.8-10.44); Carbon Dioxide 27 mmol/L (22-29); Chloride 105 mmol/L (98-107); Estimated GFR 121; Glucose 188 mg/dL (70-105); Magnesium 2.1 mg/dL (1.6-2.6); Potassium 3.4 mmol/L (3.5-5.1); Sodium 140 mmol/L (136-145)
[2022-03-02 05:18] LABS: Phosphorus 2.9 mg/dL (2.3-4.7)
[2022-03-02] MEDS: Oxazepam 10 MG CAP PO SCH ×2 (05:45→12:22)
[2022-03-02] MEDS ORDERED: Potassium Phosphate 30 MMOL in Sodium Chloride 0.9% 250 ML 250 ML IVPB SCH (08:30)
[2022-03-02] MEDS: Ascorbic Acid 500 mg Chewable Tablet PO SCH ×2 (08:51→21:23)
[2022-03-02] MEDS: Gabapentin 300 MG CAP PO SCH ×3 (08:52→21:23)
[2022-03-02] MEDS: Cyclobenzaprine 10 MG TAB PO SCH ×3 (08:52→21:23)
[2022-03-02] MEDS: Ferrous Sulfate 325 MG TAB PO SCH ×2 (08:52→16:36)
[2022-03-02] MEDS: Senokot S 8.6-50 MG TAB PO SCH ×2 (08:52→21:24)
[2022-03-02] MEDS: Saccharomyces boulardii 250 MG CAP PO SCH (08:52)
[2022-03-02] MEDS: Enoxaparin Sodium 30 MG/0.3 ML SYRINGE SC SCH ×2 (08:53→21:24)
[2022-03-02] MEDS: Polyethylene Glycol 3350 17 GM Packet PO SCH (08:53)
[2022-03-02] MEDS: Bisoprolol Fumarate 5 MG TAB PO SCH (12:21)
[2022-03-03] MEDS: Piperacillin/Tazobactam 3.375 GM in Sodium Chloride 0.9% 100 ML IVPB SCH ×3 (02:19→18:30)
[2022-03-03 04:56] LABS: #Eosinphils 0.3 thou/uL (0.0-0.7); #Lymphocytes 2.2 thou/uL (1.20-3.40); #Monocytes 0.6 thou/uL (0.11-0.59); #Neutrophils 8.1 thou/uL (1.40-6.50); %Lymphocytes 19.8 % (21.0-51.0); %Monocytes 4.9 % (0.0-10.0); %Neutrophils 72.4 % (42.0-75.0); Hemoglobin 8.8 g/dL (12.0-16.0); Mean Corpuscular HGB CONC 33.5 g/dL (32.0-36.0); Mean Corpuscular Hemoglobin 31.6 pg (27.0-31.0); Mean Corpuscular Volume 94.4 fL (78.0-98.0); Mean Platelet Volume 7.9 fL (7.4-10.4); Platelet Count 191 thou/uL (130-400); RBC Distribution Width 13.7 % (11.5-14.5); Red Blood Cell (RBC) Count 2.78 mill/uL (4.20-5.40); White Blood Cell (WBC) Count 11.2 thou/uL (4.8-10.8)
[2022-03-03 05:08] LABS: Phosphorus 3.1 mg/dL (2.3-4.7)
[2022-03-03 05:11] LABS: Anion Gap 11 mmol/L (10-20); BUN (Urea Nitrogen) 9 mg/dL (7.0-18.7); CK (CPK) 1040 U/L (29-168); Calc. Creatinine Clearance 217 mL/min (70-130); Calcium 7.6 mg/dL (7.8-10.44); Carbon Dioxide 29 mmol/L (22-29); Chloride 104 mmol/L (98-107); Estimated GFR 123; Glucose 140 mg/dL (70-105); Potassium 3.4 mmol/L (3.5-5.1); Sodium 141 mmol/L (136-145)
[2022-03-03] MEDS: Acetaminophen 325 MG TAB PO SCH ×3 (06:02→18:29)
[2022-03-03] MEDS: cloNIDine 0.1 MG TAB PO SCH ×3 (06:02→18:30)
[2022-03-03] MEDS ORDERED: Ibuprofen 200 MG TAB PO PRN (09:00)
[2022-03-03] MEDS ORDERED: Potassium Phosphate 30 MMOL in Sodium Chloride 0.9% 250 ML 250 ML IVPB SCH (09:00)
[2022-03-03] MEDS: Gabapentin 300 MG CAP PO SCH ×3 (09:46→21:43)
[2022-03-03] MEDS: Ferrous Sulfate 325 MG TAB PO SCH ×2 (09:46→18:30)
[2022-03-03] MEDS: Cyclobenzaprine 10 MG TAB PO SCH ×3 (09:46→21:41)
[2022-03-03] MEDS: Polyethylene Glycol 3350 17 GM Packet PO SCH (09:46)
[2022-03-03] MEDS: traMADol HCl 50 MG TAB PO SCH ×3 (09:47→18:29)
[2022-03-03] MEDS: Ascorbic Acid 500 mg Chewable Tablet PO SCH ×2 (09:47→21:41)
[2022-03-03] MEDS: Senokot S 8.6-50 MG TAB PO SCH ×2 (09:49→21:42)
[2022-03-03] MEDS: Enoxaparin Sodium 30 MG/0.3 ML SYRINGE SC SCH ×2 (09:49→21:41)
[2022-03-03] MEDS: Saccharomyces boulardii 250 MG CAP PO SCH (09:49)
[2022-03-03] MEDS ORDERED: Acetaminophen/Codeine 30-300mg Tablet PO PRN (11:17)
[2022-03-03] MEDS ORDERED: Furosemide 20 MG/2 ML VIAL SLOW IVP SCH (11:30)
[2022-03-03] MEDS: Bisoprolol Fumarate 5 MG TAB PO SCH (12:27)
[2022-03-04] MEDS: Acetaminophen 325 MG TAB PO SCH ×4 (00:06→17:33)
[2022-03-04] MEDS: cloNIDine 0.1 MG TAB PO SCH ×4 (00:06→17:31)
[2022-03-04] MEDS: traMADol HCl 50 MG TAB PO SCH ×4 (02:07→20:19)
[2022-03-04] MEDS: Piperacillin/Tazobactam 3.375 GM in Sodium Chloride 0.9% 100 ML IVPB SCH ×3 (02:08→17:32)
[2022-03-04] MEDS: Enoxaparin Sodium 30 MG/0.3 ML SYRINGE SC SCH ×2 (09:48→20:21)
[2022-03-04] MEDS: Senokot S 8.6-50 MG TAB PO SCH ×2 (09:48→20:21)
[2022-03-04] MEDS: Polyethylene Glycol 3350 17 GM Packet PO SCH (09:48)
[2022-03-04] MEDS: Ferrous Sulfate 325 MG TAB PO SCH ×2 (09:49→17:32)
[2022-03-04] MEDS: Saccharomyces boulardii 250 MG CAP PO SCH (09:50)
[2022-03-04] MEDS: Bisoprolol Fumarate 5 MG TAB PO SCH (09:50)
[2022-03-04] MEDS: Ascorbic Acid 500 mg Chewable Tablet PO SCH ×2 (09:50→20:20)
[2022-03-04] MEDS: Gabapentin 300 MG CAP PO SCH ×3 (09:51→20:20)
[2022-03-04] MEDS: Cyclobenzaprine 10 MG TAB PO SCH ×3 (09:52→20:21)
[2022-03-04] MEDS ORDERED: Sodium Chloride 0.65% Nasal 44 ML BOT EA NARE PRN (12:59)
[2022-03-04 13:46] VITALS: BMI 37.0
[2022-03-05] MEDS: Acetaminophen 325 MG TAB PO SCH ×3 (00:42→12:56)
[2022-03-05] MEDS: traMADol HCl 50 MG TAB PO SCH ×3 (00:43→12:55)
[2022-03-05] MEDS: cloNIDine 0.1 MG TAB PO SCH ×3 (00:43→12:56)
[2022-03-05] MEDS: Piperacillin/Tazobactam 3.375 GM in Sodium Chloride 0.9% 100 ML IVPB SCH ×2 (01:56→09:52)
[2022-03-05 05:52] LABS: #Eosinphils 0.3 thou/uL (0.0-0.7); #Lymphocytes 2.2 thou/uL (1.20-3.40); #Monocytes 0.7 thou/uL (0.11-0.59); #Neutrophils 8.3 thou/uL (1.40-6.50); %Basophils 0.4 % (0.0-1.0); %Eosinophils 2.7 % (0.0-10.0); %Monocytes 6.4 % (0.0-10.0); %Neutrophils 71.6 % (42.0-75.0); Hemoglobin 9.3 g/dL (12.0-16.0); Mean Corpuscular HGB CONC 32.7 g/dL (32.0-36.0); Mean Corpuscular Volume 94.9 fL (78.0-98.0); Mean Platelet Volume 8.1 fL (7.4-10.4); Platelet Count 283 thou/uL (130-400); RBC Distribution Width 13.9 % (11.5-14.5); White Blood Cell (WBC) Count 11.6 thou/uL (4.8-10.8)
[2022-03-05] MEDS: Saccharomyces boulardii 250 MG CAP PO SCH (08:26)
[2022-03-05] MEDS: Gabapentin 300 MG CAP PO SCH (08:26)
[2022-03-05] MEDS: Ascorbic Acid 500 mg Chewable Tablet PO SCH (08:27)
[2022-03-05] MEDS: Polyethylene Glycol 3350 17 GM Packet PO SCH (08:28)
[2022-03-05] MEDS: Enoxaparin Sodium 30 MG/0.3 ML SYRINGE SC SCH (08:28)
[2022-03-05] MEDS: Senokot S 8.6-50 MG TAB PO SCH (08:28)
[2022-03-05] MEDS: Cyclobenzaprine 10 MG TAB PO SCH (08:28)
[2022-03-05] MEDS: Ferrous Sulfate 325 MG TAB PO SCH (08:28)
[2022-03-05] MEDS: Bisoprolol Fumarate 5 MG TAB PO SCH (09:49)
[2022-03-05 15:21] VITALS: BP 122/76; TEMP 98.6
== END 2022-03-05 15:15 | DRG 956 ==
LOC: ERS 13:52 → UNDOADMIN 15:17 → CCU 15:17 → IMCU/EMU 02-26 15:57 → CCU 02-27 05:21 → IMCU/EMU 02-28 12:38 → SJJU 03-03 07:57
PROVIDERS: ADMIT Surgery; ATTEND Surgery
PROC: 5A1945Z Respiratory Ventilation, 24-96 Consecutive Hours (ICD-10-PCS; 2022-02-24)
PROC: 30233M1 Transfusion of Nonautologous Plasma Cryoprecipitate into Peripheral Vein, Percutaneous Approach (ICD-10-PCS; 2022-02-24)
PROC: 6A550Z2 Pheresis of Platelets, Single (ICD-10-PCS; 2022-02-24)
PROC: 30233K1 Transfusion of Nonautologous Frozen Plasma into Peripheral Vein, Percutaneous Approach (ICD-10-PCS; 2022-02-24)
PROC: 02H633Z Insertion of Infusion Device into Right Atrium, Percutaneous Approach (ICD-10-PCS; 2022-02-24)
PROC: 0BH17EZ Insertion of Endotracheal Airway into Trachea, Via Natural or Artificial Opening (ICD-10-PCS; 2022-02-24)
PROC: 30243K1 Transfusion of Nonautologous Frozen Plasma into Central Vein, Percutaneous Approach (ICD-10-PCS; 2022-02-24)
PROC: 30243N1 Transfusion of Nonautologous Red Blood Cells into Central Vein, Percutaneous Approach (ICD-10-PCS; 2022-02-24)
PROC: 0QS904Z Reposition Left Femoral Shaft with Internal Fixation Device, Open Approach (ICD-10-PCS; principal; 2022-02-25)
PROC: 0QS204Z Reposition Right Pelvic Bone with Internal Fixation Device, Open Approach (ICD-10-PCS; 2022-02-25)
PROC: 0QS504Z Reposition Left Acetabulum with Internal Fixation Device, Open Approach (ICD-10-PCS; 2022-02-25)
PROC: 0SH704Z Insertion of Internal Fixation Device into Right Sacroiliac Joint, Open Approach (ICD-10-PCS; 2022-02-25)
PROC: 5A09357 Assistance with Respiratory Ventilation, Less than 24 Consecutive Hours, Continuous Positive Airway Pressure (ICD-10-PCS; 2022-02-27)
PROC: 0PSJ04Z Reposition Left Radius with Internal Fixation Device, Open Approach (ICD-10-PCS; 2022-03-01)
PROC: 0PSL04Z Reposition Left Ulna with Internal Fixation Device, Open Approach (ICD-10-PCS; 2022-03-01)
DX: S72.352A Displaced comminuted fracture of shaft of left femur, initial encounter for closed fracture (principal); Z20.822 Contact with and (suspected) exposure to COVID-19; Z23 Encounter for immunization; S32.452A Displaced transverse fracture of left acetabulum, initial encounter for closed fracture; R57.8 Other shock; J96.00 Acute respiratory failure, unspecified whether with hypoxia or hypercapnia; S36.031A Moderate laceration of spleen, initial encounter; S32.591A Other specified fracture of right pubis, initial encounter for closed fracture; S06.2X9A Diffuse traumatic brain injury with loss of consciousness of unspecified duration, initial encounter; S32.10XA Unspecified fracture of sacrum, initial encounter for closed fracture; S22.32XA Fracture of one rib, left side, initial encounter for closed fracture; S22.089A Unspecified fracture of T11-T12 vertebra, initial encounter for closed fracture; S32.019A Unspecified fracture of first lumbar vertebra, initial encounter for closed fracture; S32.029A Unspecified fracture of second lumbar vertebra, initial encounter for closed fracture; S52.352A Displaced comminuted fracture of shaft of radius, left arm, initial encounter for closed fracture; S52.252A Displaced comminuted fracture of shaft of ulna, left arm, initial encounter for closed fracture; S27.322A Contusion of lung, bilateral, initial encounter; D62 Acute posthemorrhagic anemia; E87.2 Acidosis; N17.9 Acute kidney failure, unspecified; E27.40 Unspecified adrenocortical insufficiency; S32.391A Other fracture of right ilium, initial encounter for closed fracture; R40.2362 Coma scale, best motor response, obeys commands, at arrival to emergency department; R40.2132 Coma scale, eyes open, to sound, at arrival to emergency department; R40.2242 Coma scale, best verbal response, confused conversation, at arrival to emergency department; I10 Essential (primary) hypertension; R74.01 Elevation of levels of liver transaminase levels; T79.6XXA Traumatic ischemia of muscle, initial encounter; E87.6 Hypokalemia; E83.39 Other disorders of phosphorus metabolism; Z79.899 Other long term (current) drug therapy; V43.52XA Car driver injured in collision with other type car in traffic accident, initial encounter; Y92.410 Unspecified street and highway as the place of occurrence of the external cause
CPT/HCPCS: 31500; 36415; 36416; 36430; 36556; 36600; 36680; 51702; 70450; 70498; 71045; 71260; 72125; 72170; 72190; 74018; 74177; 76000; 80048; 80053; 80076; 80307; 81001; 82533; 82550; 82553; 82805; 83605; 83690; 83735; 83880; 84100; 84311; 84484; 84703; 85025; 85060; 85384; 85610; 85730; 86850; 86900; 86901; 87040; 87070; 87086; 87205; 90715; 93005; 93010; 94003; 94640; 94660; 96374; 96375; 96376; C1713; C1769; C9113; G0390; J0171; J0690; J1650; J1720; J1885; J1940; J2250; J2370; J2405; J2543; J2704; J3010; J3475; J3480; J3490; J7050; J7120; J7620; P9016; P9035; P9045; P9048; P9059; Q9966; S0020; U0002